=== PATIENT | male | born 1970 | race Two or more races ===

== ENCOUNTER 2018-09-23 02:52 | Emergency (ER) | payer MEDICAID ==
--- NOTE | 2018-09-23 03:32 | NUR ---
pt called for triage, no answer.
--- NOTE | 2018-09-23 03:39 | NUR ---
pt called for triage, sleeping in ER [facility]. Asked pt if he wanted to be seen. pt nodding head no, refusing to answer, and going back to sleep.
== END 2018-09-23 04:28 | disposition left against medical advice (07) ==
LOC: ER 02:52
DX: Z53.21 Procedure and treatment not carried out due to patient leaving prior to being seen by health care provider (principal)